=== PATIENT | male | born 1975 | race Hispanic/Latino ===

== ENCOUNTER 2020-07-10 05:02 | Emergency (ER) | payer SELFPAY ==
[2020-07-10] MEDS ORDERED: SULFAMETHOXAZOLE/TRIMETHOPRIM 800/160MG DS TAB PO ONE (05:33)
[2020-07-10] MEDS ORDERED: IBUPROFEN 600 MG TAB PO ONE (05:33)
--- NOTE | 2020-07-10 05:34 | Event Note ---
ED Screening Note Date of service: 07/10/20 Time: 05:31 ED Screening Note: Patient is a 45-year-old white male with a history of IV drug use who presents to the ED with acute onset persistent severe painful swollen mild erythematous left wrist for the last 3 days. 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 Patient admits to using IV drugs but states that he usually injects on the right instead of left. Patient denies fever, chills, nausea, vomiting, dizziness, syncope, fall, numbness and tingling or weakness of left arm or left hand, headache, chest pain, shortness of breath, change in vision, heavy lifting or abdominal pain. This initial assessment/diagnostic orders/clinical plan/treatment(s) is/are subject to change based on patients health status, clinical progression and re- assessment by fellow clinical providers in the ED. Further treatment and workup at subsequent clinical providers discretion. Patient/guardian urged not to elope from the ED as their condition may be serious if not clinically assessed and managed. Initial orders include: CBC, CMP, left wrist x-ray
[2020-07-10 05:35] VITALS: BP 131/84
--- NOTE | 2020-07-10 05:57 | XRay Report ---
LEFT WRIST 3 VIEWS INDICATION: Pain, swelling. No reported injury. COMPARISON: No relevant prior imaging study available. FINDINGS: No acute skeletal abnormality. Cystic changes in the carpus are likely degenerative. There is dorsal soft tissue swelling. No foreign bodies. IMPRESSION: 1. Dorsal soft tissue swelling. Signer Name: Harpal Gonzalez MD Signed: 07/10/2020 5:53 AM Workstation Name: [id number]
[2020-07-10 06:45] LABS: Basophils % (Auto) 0.4 % (0.0-1.8); Eosinophils # (Auto) 0.3 K/mm3 (0.0-0.4); Eosinophils % (Auto) 2.3 % (0.0-4.3); Hematocrit 42.3 % (35.5-45.6); Hemoglobin 14.2 gm/dl (11.8-15.2); Lymphocytes # (Auto) 3.4 K/mm3 (1.2-5.4); Lymphocytes % (Auto) 30.1 % (13.4-35.0); Mean Corpuscular HGB Conc 34 % (32-34); Mean Corpuscular Volume 89 fl (84-94); Monocytes # (Auto) 1.5 K/mm3 (0.0-0.8); Monocytes % (Auto) 13.1 % (0.0-7.3); Platelet Count 236 K/mm3 (140-440); Red Blood Count 4.76 M/mm3 (3.65-5.03); Red Cell Distribution Width 15.1 % (13.2-15.2)
[2020-07-10 06:50] LABS: Alanine Aminotransferase 19 units/L (7-56); BUN/Creatinine Ratio 21; Blood Urea Nitrogen 17 mg/dL (9-20); Calcium 9.7 mg/dL (8.4-10.2); Hemolysis Index 2
--- NOTE | 2020-07-10 07:28 | Emergency Department Report ---
Upper Extremity - HPI Chief Complaint: Extremity Injury, Upper Stated Complaint: LT HAND SWELLING Time Seen by Provider: 07/10/20 07:24 Upper Extremity: Left Hand Occurred When: 3 Days Symptoms: Yes Pain with Movement, Yes Limited Range of Movement, Yes Swelling, Yes Laceration or Abrasion, No Deformity, No Numbness, No Weakness, No Bruising/Ecchymosis Other History: 44-year-old male with a past medical history of IV drug use, cellulitis and tobacco use presents to the ER today complaining of pain, swelling and redness to the dorsal aspect of his left hand and wrist. Patient states that his symptoms started around 3 days ago and has been gradually getting worse. He denies any particular injury to his hand. He states that he has not done any IV drugs through that left hand for the next 4 years. He states that he is on his hands and feet a lot at work and also in the past 2 to 3 weeks he was out in the [place] and got bit by triggers has been itching. He s tates that the pain in the hand is worse with movement. He denies any fever at home. He states its been 2-3 yr since he has had to come to hospital for his cellulitis. He is up to date on his tetanus. ED Review of Systems ROS: Stated complaint: LT HAND SWELLING Other details as noted in HPI Comment: All other systems reviewed and negative Constitutional: denies: chills, fever ENT: denies: ear pain, throat pain, dental pain, hearing loss, epistaxis, congestion Respiratory: denies: cough, shortness of breath, SOB with exertion, SOB at rest, wheezing Cardiovascular: denies: chest pain, palpitations Endocrine: no symptoms reported Gastrointestinal: denies: abdominal pain, nausea, diarrhea, constipation, hematemesis, hematochezia Musculoskeletal: joint swelling, arthralgia, myalgia Skin: other (erythema to dorsal hand) Neurological: denies: headache, weakness, numbness, paresthesias, confusion, abnormal gait, vertigo Psychiatric: denies: anxiety, auditory hallucinations, visual hallucinations, homicidal thoughts, suicidal thoughts Hematological/Lymphatic: denies: easy bleeding, easy bruising ED Past Medical Hx - Past Medical History Previous Medical History?: No - Surgical History Past Surgical History?: Yes Hx Appendectomy: Yes Upper Extremity Exam - Exam General: Vital signs noted. No distress. Alert and acting appropriately. Head and Torso: No HEENT Abnormality, No Chest/Lungs Abnormality Wrist: Yes Wrist Tenderness (Exquiste ttp dorsal radial aspect left wrist ), No Normal ROM in Wrist (ROM left wrist mildly reduce due to apin), No Wrist Deformity, No Snuffbox Tenderness Hand: Yes Hand Tenderness (Dorsal left hand hand mainly over the 2-4th metacarpal area and the knuckle), Yes Normal ROM in Digit(s) (Patient having difficulty fully extend his third through fifth fingers due to increased pain in the dorsal hand), Yes Digit(s) Deformity, No Hand Deformity, No Digit Tenderness, No Tendon Dysfunction CMS Exam: Yes Normal Distal Pulses, Yes Normal Capillary Refill, Yes Normal Distal Sensation, No Broken Skin Hand L/R Back: 1 - Moderate soft swelling/moderate erythema but no streaking into fingers or wrist nor forearm. +TTP; Mild warmth ED Course Vital Signs 07/10/20 05:34 Temperature 98.5 F Pulse Rate 94 H Respiratory 20 Rate Blood Pressure 131/84 [Right] O2 Sat by Pulse 98 Oximetry ED Medical Decision Making - Lab Data Result diagrams: 07/10/20 05:37 07/10/20 05:37 - Radiology Data Radiology results: report reviewed Patient: SHER NICOLE MR#: [id number] : 1975 Acct:[id number] Age/Sex: 44 / M ADM Date: 07/10/20 Loc: ED Attending Dr: Ordering Physician: DOTTY AYON Date of Service: 07/10/20 Procedure(s): XR hand 3+V LT Accession Number(s): [id number] cc: DOTTY AYON Fluoro Time In Minutes: LEFT HAND 3 VIEWS INDICATION: dorsal hand cellulitis. COMPARISON: None. IMPRESSION: There is moderate to severe diffuse soft tissue swelling. No obvious soft tissue gas or radiopaque foreign body on x-ray. Bony structures are intact. Mild to moderate osteoarthritic changes are identified at the carpal articulations. The remaining joint spaces are unremarkable. Signer Name: Avi Ferrell Jr, MD Signed: 07/10/2020 7:53 AM Workstation Name: [id number] Transcribed By: MAHAMED Dictated By: AVI FERRELL JR, MD Electronically Authenticated By: AVI FERRELL JR, MD Signed Date/Time: 07/10/20752 DD/ 1 TD/TT: Patient: SHER NICOLE MR#: [id number] : 1975 Acct:[id number] Age/Sex: 44 / M ADM Date: 07/10/20 Loc: ED Attending Dr: Ordering Physician: NINFA REILLY Date of Service: 07/10/20 Procedure(s): XR wrist 3+V LT Accession Number(s): [id number] cc: NINFA REILLY Fluoro Time In Minutes: LEFT WRIST 3 VIEWS INDICATION: Pain, swelling. No reported injury. COMPARISON: No relevant prior imaging study available. FINDINGS: No acute skeletal abnormality. Cystic changes in the carpus are likely degenerative. There is dorsal soft tissue swelling. No foreign bodies. IMPRESSION: 1. Dorsal soft tissue swelling. Signer Name: Harpal Gonzalez MD Signed: 07/10/2020 5:53 AM Workstation Name: [id number] Transcribed By: EUNICE Dictated By: Harpal Gonzalez MD Electronically Authenticated By: Harpal Gonzalez MD Signed Date/Time: 07/10/20552 DD/ 1 TD/TT: - Medical Decision Making Patient was triaged and MSE prior to me starting my shift; He has a cellulitis localized to dorsal left hand; No apparent septic joint or signs of infectious tenosynovitis or retracting fasciitis or deep space abscess at this time. his lab shows a normal white count, and his wrist x-ray dorsal soft tissue swelling but otherwise nothing else acute. He was not toxic or ill-appearing and did not appear to be in any acute distress. He was afebrile and vitals were stable. Discussed case with Dr. Tirado, he recommended adding CK and hand images. Informed patient of plan to do the additional testing which he agreed to. Xray of hand showed moderate to severe diffuse soft tissue swelling. CK still pending 1015am: After several calls to the lab checking on the status of the CK it was finally resulted and appeared to be normal. When I went to find patient to check on the results he was nowhere to be found. Call patient several times and again no answer. Patient apparently eloped without notification to nursing staff nor myself. Critical care attestation.: If time is entered above; I have spent that time in minutes in the direct care of this critically ill patient, excluding procedure time. ED Disposition Clinical Impression: Cellulitis of hand Disposition: Z- ELOPED Is pt being admited?: No Does the pt Need Aspirin: No Condition: Stable Referrals: PRIMARY CARE, [Primary Care Provider] - 3-5 Days
--- NOTE | 2020-07-10 07:58 | XRay Report ---
LEFT HAND 3 VIEWS INDICATION: dorsal hand cellulitis. COMPARISON: None. IMPRESSION: There is moderate to severe diffuse soft tissue swelling. No obvious soft tissue gas or radiopaque foreign body on x-ray. Bony structures are intact. Mild to moderate osteoarthritic change s are identified at the carpal articulations. The remaining joint spaces are unremarkable. Signer Name: Avi Ferrell Jr, MD Signed: 07/10/2020 7:53 AM Workstation Name: [id number]
== END 2020-07-10 18:40 | disposition left against medical advice (07) ==
LOC: ED 05:02
DX: L03.114 Cellulitis of left upper limb (principal); Z90.49 Acquired absence of other specified parts of digestive tract
CPT/HCPCS: 36415; 80053; 82550; 85025

== ENCOUNTER 2020-07-12 01:03 | Emergency (ER) | payer SELFPAY ==
--- NOTE | 2020-07-12 06:32 | Emergency Department Report ---
ED General Adult HPI - General Chief complaint: Extremity Injury, Upper Stated complaint: LEFT HAND SWOLLEN Source: patient Mode of arrival: Ambulatory Limitations: No Limitations - History of Present Illness Initial comments: Patient is a 44-year-old white male who presents for left hand pain and swelling for the past 3 weeks. Patient denies fall injury or trauma. Patient denies other diagnoses. There is no fever, chills, open wound no nausea vomiting no erythema. Pain described at 4/10 aching. Intermittent. Pain is exacerbated by activity and movement. Pain is relieved by rest. - Related Data Previous Rx's Medication Instructions Recorded Last Taken Type Acetaminophen [Non-Aspirin Extra 1,000 mg PO Q6H PRN #30 tablet 07/12/20 Unknown Rx Strength] Allergies Allergy/AdvReac Type Severity Reaction Status Date / Time No Known Allergies Allergy Unverified 07/10/20 05:31 ED Review of Systems ROS: Stated complaint: LEFT HAND SWOLLEN Other details as noted in HPI Constitutional: denies: chills, fever Eyes: denies: eye pain, eye discharge, vision change ENT: denies: ear pain, throat pain Respiratory: denies: cough, shortness of breath, wheezing Cardiovascular: denies: chest pain, palpitations Endocrine: no symptoms reported Gastrointestinal: denies: abdominal pain, nausea, diarrhea Genitourinary: denies: urgency, dysuria Musculoskeletal: arthralgia Skin: denies: rash, lesions Neurological: denies: headache, weakness, paresthesias Psychiatric: denies: anxiety, depression Hematological/Lymphatic: denies: easy bleeding, easy bruising ED Past Medical Hx - Past Medical History Previous Medical History?: Yes Hx Arthritis: Yes Hx Asthma: Yes 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 - Surgical History Past Surgical History?: Yes Hx Appendectomy: Yes - Social History Smoking Status: Current Every Day Smoker Substance Use Type: Alcohol - Medications Home Medications: Home Medications Medication Instructions Recorded Confirmed Last Taken Type Acetaminophen [Non-Aspirin Extra 1,000 mg PO Q6H PRN #30 tablet 07/12/20 Unknown Rx Strength] ED Physical Exam - General Limitations: No Limitations General appearance: alert, in no apparent distress - Head Head exam: Present: atraumatic, normocephalic - Eye Eye exam: Present: normal appearance - ENT ENT exam: Present: mucous membranes moist - Neck Neck exam: Present: normal inspection - Respiratory Respiratory exam: Present: normal lung sounds bilaterally. Absent: respiratory distress - Cardiovascular Cardiovascular Exam: Present: regular rate, normal rhythm. Absent: systolic murmur, diastolic murmur, rubs, gallop - GI/Abdominal GI/Abdominal exam: Present: soft, normal bowel sounds - Rectal Rectal exam: Present: deferred - Extremities Exam Extremities exam: Present: full ROM, tenderness, normal capillary refill. Absent: pedal edema - Expanded Upper Extremity Exam Left Hand Wrist exam: Present: full ROM, tenderness, swelling. Absent: abrasion, laceration, ecchymosis, deformity, crepidus, dislocation, erythema, amputation, nail avulsion, subungual hematoma Neuro motor exam: Present: wrist extension intact, thumb opposition intact, thumb IP flexion intact, thumb adduction intact, fingers 2-5 abduction intact Neurosensory exam: Present: radial nerve intact - Back Exam Back exam: Present: normal inspection, full ROM. Absent: tenderness - Neurological Exam Neurological exam: Present: alert, oriented X3, CN II-XII intact, normal gait, reflexes normal. Absent: motor sensory deficit - Expanded Neurological Exam Expanded Patient oriented to: Present: person, place, time Speech: Present: fluid speech Motor strength exam: RUE: 5, LUE: 5 Best Eye Response ([place]ora): (4) open spontaneously Best Motor Response ([place]): (6) obeys commands Best Verbal Response ([place]): (5) oriented [place] Total: 15 - Psychiatric Psychiatric exam: Present: normal affect, normal mood - Skin Skin exam: Present: warm, dry, intact, normal color. Absent: rash ED Medical Decision Making - Radiology Data Radiology results: report reviewed, image reviewed LEFT HAND 3 VIEWS INDICATION: dorsal hand cellulitis. COMPARISON: None. IMPRESSION: There is moderate to severe diffuse soft tissue swelling. No obvious soft tissue gas or radiopaque foreign body on x-ray. Bony structures are intact. Mild to moderate osteoarthritic changes are identified at the carpal articulations. The remaining joint spaces are unremarkable. Signer Name: Avi Julian Jr, MD Signed: 07/10/2020 7:53 AM Workstation Name: [id number] Transcribed By: TTR Dictated By: AVI JULIAN JR, MD Electronically Authenticated By: AVI JULIAN JR, MD Signed Date/Time: 07/10/20 1976 DD/ 0752 TD/TT: - Medical Decision Making X-ray with soft tissue swelling there is no erythema no fever no swelling no wound distal pulses intact range of motion is intact no symptoms of cellulitis noted at this time. Plan NSAIDs, follow-up with primary care doctor in 2 to 3 days. Upon chart review patient was seen for same on yesterday advised same diagnosis. Patient advises had no vertigo will be discharged to self at this time patient with no acute distress Critical care attestation.: If time is entered above; I have spent that time in minutes in the direct care of this critically ill patient, excluding procedure time. ED Disposition Clinical Impression: Arthralgia of hand, left Disposition: - TO HOME OR SELFCARE Is pt being admited?: No Does the pt Need Aspirin: No Condition: Stable Instructions: Musculoskeletal Pain Prescriptions: Acetaminophen [Non-Aspirin Extra Strength] 1,000 mg PO Q6H PRN #30 tablet PRN Reason: pain Referrals: PRIMARY CARE,MD [Primary Care Provider] - 3-5 Days Forms: Work/School Release Form(ED) Time of Disposition: 06:38
== END 2020-07-12 06:48 | disposition home or self-care (01) ==
LOC: ED 01:03
DX: M25.542 Pain in joints of left hand (principal); M19.90 Unspecified osteoarthritis, unspecified site; J45.909 Unspecified asthma, uncomplicated; F17.200 Nicotine dependence, unspecified, uncomplicated; Z98.890 Other specified postprocedural states; Z79.899 Other long term (current) drug therapy
CPT/HCPCS: 99282